=== PATIENT | female | born 1970 | race African-American/Black ===

== ENCOUNTER 2021-12-02 00:17 | Emergency (ER) | payer OTHER ==
[2021-12-02 00:23] VITALS: BP 115/74
--- NOTE | 2021-12-02 00:25 | Emergency Department Report ---
- General Stated Complaint: COVID + Time Seen by Provider: 12/02/21 00:21 - History of Present Illness Initial Comments: Patient was diagnosed with COVID today. She came here because she was having trouble breathing and had nasal congestion. She has not taken anything for this. She has had no vomiting or diarrhea. She has had cough with congestion and fevers and chills. She does not know where she contracted coronavirus from. Patient has no lung history. She has no other complaint. - Related Data Previous Rx's Medication Instructions Recorded Last Taken Type HYDROcodone/APAP 5-325 [[place] 1 each PO Q6HR PRN #10 tablet 02/22/16 Unknown Rx 5/325] Albuterol Sulfate [Proventil Hfa] 2 puff IH 4XD #1 inh 12/02/21 Unknown Rx Benzonatate [Tessalon Perles] 100 mg PO Q8HR #21 cap 12/02/21 Unknown Rx Allergies Allergy/AdvReac Type Severity Reaction Status Date / Time No Known Allergies Allergy Verified 02/21/16 13:55 ED Review of Systems ROS: Stated complaint: COVID + Other details as noted in HPI Comment: All other systems reviewed and negative Constitutional: fever Eyes: denies: vision change ENT: denies: epistaxis Respiratory: see HPI Cardiovascular: denies: chest pain Endocrine: denies: unexplained weight loss Gastrointestinal: denies: abdominal pain Genitourinary: denies: dysuria Musculoskeletal: denies: back pain Skin: denies: rash Neurological: denies: headache Hematological/Lymphatic: denies: easy bruising ED Past Medical Hx - Past Medical History Hx Hypertension: No Hx GERD: Yes Hx Asthma: Yes - Surgical History Hx Cholecystectomy: Yes Additional Surgical History: LEFT EAR SURGERY - Family History Family history: asthma - Social History Smoking Status: Never Smoker Substance Use Type: Alcohol - Medications Home Medications: Home Medications Medication Instructions Recorded Confirmed Last Taken Type HYDROcodone/APAP 5-325 [[place] 1 each PO Q6HR PRN #10 tablet 02/22/16 Unknown Rx 5/325] Albuterol Sulfate [Proventil Hfa] 2 puff IH 4XD #1 inh 12/02/21 Unknown Rx Benzonatate [Tessalon Perles] 100 mg PO Q8HR #21 cap 12/02/21 Unknown Rx ED Physical Exam - General Limitations: No Limitations, Other General appearance: alert, in no apparent distress - Head Head exam: Present: atraumatic, normocephalic - Eye Eye exam: Present: normal appearance, EOMI - ENT ENT exam: Present: normal external ear exam - Neck Neck exam: Present: normal inspection. Absent: meningismus - Respiratory Respiratory exam: Present: normal lung sounds bilaterally. Absent: respiratory distress - Cardiovascular Cardiovascular Exam: Present: regular rate, normal rhythm - Extremities Exam Extremities exam: Present: normal capillary refill - Back Exam Back exam: Present: full ROM - Neurological Exam Neurological exam: Present: alert, oriented X3, normal gait. Absent: motor sensory deficit - Psychiatric Psychiatric exam: Present: normal affect, normal mood - Skin Skin exam: Present: warm, dry ED Course - Reevaluation(s) Reevaluation #1: 12/02/21 00:24 Patient was not hypoxic. She was discharged. ED Medical Decision Making - Medical Decision Making Patient presents with a diagnosis of coronavirus x1 day and shortness of breath with congestion. The congestion is related to the viral infection. She states that she is dyspneic but is not hypoxic. She is not tachycardic. She is in no distress. She was treated with an albuterol inhaler and discharged. I do not believe this represents any type of pneumonia as the patient has clear breath sounds. She is not hypoxic or tachycardic. There is no chest pain. I do not believe this represents PE Critical Care Time: No Critical care attestation.: If time is entered above; I have spent that time in minutes in the direct care of this critically ill patient, excluding procedure time. ED Disposition Clinical Impression: COVID-19 virus infection, Shortness of breath Disposition: 01 HOME / SELF CARE / HOMELESS Is pt being admited?: No Condition: Stable Instructions: COVID-19 Frequently Asked Questions, Shortness of Breath, Adult, COVID-19: How to Protect Yourself and Others - CDC Additional Instructions: Push fluids. Use Tylenol and ibuprofen for fever. Follow-up with your regular doctor. Isolate at home for 5 days. Use the inhaler as directed. Prescriptions: Albuterol Sulfate [Proventil Hfa] 2 puff IH 4XD #1 inh Benzonatate [Tessalon Perles] 100 mg PO Q8HR #21 cap Referrals: PRIMARY CARE, [Referring] - 3-5 Days CARBUCCIA,KELBY, MD [Staff Physician] - 3-5 Days
== END 2021-12-02 01:36 | disposition home or self-care (01) ==
LOC: ED 00:17
DX: U07.1 COVID-19 (principal); R06.02 Shortness of breath; K21.9 Gastro-esophageal reflux disease without esophagitis; J45.909 Unspecified asthma, uncomplicated; Z98.890 Other specified postprocedural states
CPT/HCPCS: 99282

== ENCOUNTER 2022-02-23 10:03 | Emergency (ER) | payer OTHER ==
[2022-02-23 11:10] VITALS: BP 112/88
--- NOTE | 2022-02-23 12:23 | Emergency Department Report ---
ED Headache HPI - General Chief Complaint: Headache Stated Complaint: HEADACHE/NASAL CONGESTION/BODY PAIN Time Seen by Provider: 02/23/22 12:02 - History of Present Illness Initial Comments: 51-year-old female with a past medical history of asthma presents to the emergency department for evaluation of headache, nasal congestion, and itchy throat for the past 2 days. She denies fever, abdominal pain. Timing/Duration: 24 hours Quality: moderate Head Injury Location: frontal Recent Head Trauma: no recent headache/trauma Associated Symptoms: nasal congestion, nasal drainage. denies: confusion, fatigue, facial pain, fever/chills, flushing, loss of consciousness, nausea/vomiting, numbness in legs/feet, seizures, sinus infection, stiff neck, vision changes, weakness Allergies/Adverse Reactions: Allergies No Known Allergies Allergy (Verified 02/21/16 13:55) Home Medications: Ambulatory Orders HYDROcodone/APAP 5-325 [[place] 5/325] 1 each PO Q6HR PRN #10 tablet 02/22/16 Albuterol Sulfate [Proventil Hfa] 2 puff IH 4XD #1 inh 12/02/21 Benzonatate [Tessalon Perles] 100 mg PO Q8HR #21 cap 12/02/21 Brompheniramine/Pseudoephed/Dm [Bromfed Dm Cough Syrup] 10 ml PO TID PRN #120 ml 02/23/22 methylPREDNISolone [Medrol 4MG DOSEPAK (21 tabs)] 4 mg PO DAILY #1 pack 02/23/22 ED Review of Systems ROS: Stated complaint: HEADACHE/NASAL CONGESTION/BODY PAIN Other details as noted in HPI Comment: All other systems reviewed and negative Constitutional: denies: chills, fever Eyes: denies: eye pain, vision change ENT: throat pain, congestion. denies: ear pain, dental pain Respiratory: cough. denies: shortness of breath, SOB with exertion, SOB at rest Cardiovascular: denies: chest pain, palpitations Gastrointestinal: denies: abdominal pain, nausea, vomiting Genitourinary: denies: urgency, dysuria Musculoskeletal: denies: back pain Skin: denies: rash, lesions Neurological: headache. denies: weakness, numbness, paresthesias, confusion, abnormal gait, vertigo ED Past Medical Hx - Past Medical History Hx Hypertension: No Hx GERD: Yes Hx Asthma: Yes - Surgical History Hx Cholecystectomy: Yes Additional Surgical History: LEFT EAR SURGERY - Social History Smoking Status: Never Smoker Substance Use Type: None - Medications Home Medications: Home Medications Medication Instructions Recorded Confirmed Last Taken Type HYDROcodone/APAP 5-325 [[place] 1 each PO Q6HR PRN #10 tablet 02/22/16 Unknown Rx 5/325] Albuterol Sulfate [Proventil Hfa] 2 puff IH 4XD #1 inh 12/02/21 Unknown Rx Benzonatate [Tessalon Perles] 100 mg PO Q8HR #21 cap 12/02/21 Unknown Rx Brompheniramine/Pseudoephed/Dm 10 ml PO TID PRN #120 ml 02/23/22 Unknown Rx [Bromfed Dm Cough Syrup] methylPREDNISolone [Medrol 4MG 4 mg PO DAILY #1 pack 02/23/22 Unknown Rx DOSEPAK (21 tabs)] ED Physical Exam - General Limitations: No Limitations General appearance: alert, in no apparent distress - Head Head exam: Present: atraumatic, normocephalic - Eye Eye exam: Present: normal appearance. Absent: conjunctival injection - ENT ENT exam: Absent: normal exam (Bilateral nasal mucosal edema and turbinate swelling.), normal orophraynx - Expanded ENT Exam Expanded Mouth exam: Present: normal external inspection Throat exam: Negative: normal inspection (Erythema to posterior oropharynx), tonsillar erythema, tonsillomegaly, tonsillar exudate, R peritonsillar mass, L peritonsillar mass - Respiratory Respiratory exam: Present: normal lung sounds bilaterally. Absent: respiratory distress, wheezes, rales, rhonchi, stridor, chest wall tenderness - Cardiovascular Cardiovascular Exam: Present: regular rate, normal heart sounds - GI/Abdominal GI/Abdominal exam: Present: soft, normal bowel sounds. Absent: distended, tenderness, guarding, rebound, rigid - Extremities Exam Extremities exam: Present: normal inspection. Absent: pedal edema, joint swelling - Back Exam Back exam: Present: normal inspection. Absent: CVA tenderness (R), CVA tende rness (L) - Neurological Exam Neurological exam: Present: alert, oriented X3, normal gait - Psychiatric Psychiatric exam: Present: normal affect, normal mood - Skin Skin exam: Present: warm, dry, intact, normal color ED Course Vital Signs 02/23/22 11:09 Temperature 98.2 F Pulse Rate 60 Respiratory 18 Rate Blood Pressure 112/88 [Right] O2 Sat by Pulse 98 Oximetry ED Medical Decision Making - Medical Decision Making 51-year-old female with a past medical history of asthma presents to the emergency department for evaluation of headache, nasal congestion, and itchy throat for the past 2 days. She denies fever, abdominal pain. Exam consistent with sinusitis. Patient denies shortness of breath or fever. She will be discharged home with Medrol Dosepak and Bromfed for cough to use as needed. She is advised to take medications as prescribed, drink plenty of noncaffeinated fluids, and follow-up with primary care provider if no improve ment or worsening symptoms. She verbalized understanding of and agreement with plan of care. Critical care attestation.: If time is entered above; I have spent that time in minutes in the direct care of this critically ill patient, excluding procedure time. ED Disposition Clinical Impression: Sinusitis Qualifiers: Sinusitis location: frontal Chronicity: acute Recurrence: non-recurrent Qualified Code(s): J01.10 - Acute frontal sinusitis, unspecified Disposition: 01 HOME / SELF CARE / HOMELESS Is pt being admited?: No Does the pt Need Aspirin: No Condition: Stable Instructions: Sinusitis, Adult, [id number], How to Perform a Sinus Rinse, [id number] Additional Instructions: Take medications as prescribed. Drink plenty of noncaffeinated fluids. Follow- up with primary care provider if no improvement or worsening symptoms. Prescriptions: Brompheniramine/Pseudoephed/Dm [Bromfed Dm Cough Syrup] 10 ml PO TID PRN #120 ml PRN Reason: Cough methylPREDNISolone [Medrol 4MG DOSEPAK (21 tabs)] 4 mg PO DAILY #1 pack Referrals: ALFREDA ANTONIO MD [Referring] - 3-5 Days Forms: Work/School Release Form(ED) Time of Disposition: 12:29
== END 2022-02-23 13:09 | disposition home or self-care (01) ==
LOC: ED 10:03
DX: J32.9 Chronic sinusitis, unspecified (principal); K21.9 Gastro-esophageal reflux disease without esophagitis; J45.909 Unspecified asthma, uncomplicated; Z90.49 Acquired absence of other specified parts of digestive tract
CPT/HCPCS: 87116; 87430; 99283

== ENCOUNTER 2022-02-26 08:06 | Emergency (ER) | payer OTHER ==
[2022-02-26 08:25] VITALS: BP 125/72
--- NOTE | 2022-02-26 09:04 | Emergency Department Report ---
Minor Respiratory - HPI Chief Complaint: Skin Rash Stated Complaint: FACE SWELLING/SORE THROAT Time Seen by Provider: 02/26/22 08:31 Duration: 5 Days Pain Location: Other Severity: mild Minor Respiratory: Yes Sore Throat, Yes Able to Tolerate Fluids, No Rhinorrhea, No Ear Pain, No Cough, No Sick Contacts, No Hemoptysis, No Chest Pain, No Shortness of Breath, No Fever Other History: Patient is a 51-year-old that comes to the emergency room after being here just 2-day days ago with ongoing symptoms of sinusitis. She has sinus pressure sore throat and today she has swelling of her eyes. The swelling of her eyes is what brings her to the ER. There is no conjunctivitis. She denies trauma. No trauma to the eyes. Patient is [id number] on exam in triage. Her significant other is with her and asking about additional work days off. She states she has been taking her medications. She is ambulatory nontoxic and [id number] ED Review of Systems ROS: Stated complaint: FACE SWELLING/SORE THROAT Other details as noted in HPI Comment: All other systems reviewed and negative ED Past Medical Hx - Past Medical History Previous Medical History?: Yes Hx Hypertension: No Hx GERD: Yes Hx Asthma: Yes - Surgical History Past Surgical History?: Yes Hx Cholecystectomy: Yes Additional Surgical History: LEFT EAR SURGERY - Family History Family history: no significant - Social History Smoking Status: Never Smoker Substance Use Type: None - Medications Home Medications: Home Medications Medication Instructions Recorded Confirmed Last Taken Type HYDROcodone/APAP 5-325 [[place] 1 each PO Q6HR PRN #10 tablet 02/22/16 Unknown Rx 5/325] Albuterol Sulfate [Proventil Hfa] 2 puff IH 4XD #1 inh 12/02/21 Unknown Rx Benzonatate [Tessalon Perles] 100 mg PO Q8HR #21 cap 12/02/21 Unknown Rx Brompheniramine/Pseudoephed/Dm 10 ml PO TID PRN #120 ml 02/23/22 Unknown Rx [Bromfed Dm Cough Syrup] methylPREDNISolone [Medrol 4MG 4 mg PO DAILY #1 pack 02/23/22 Unknown Rx DOSEPAK (21 tabs)] Minor Respiratory Exam - Exam General: Vital signs noted. No distress. Alert and acting appropriately. Mild bilateral periorbital swelling when she woke up this morning. No conjunctivitis. HEENT: Yes Pharyngeal Erythema, Yes Moist Mucous Membranes, Yes Frontal Tenderness, Yes Maxillary Tenderness, No Pharyngeal Exudates, No Rhinorrhea, No Conjuctival Injection Ear: Neither TM Bulge, Neither TM Erythema, Neither EAC Pain, Neither EAC Discharge Neck: Yes Supple, No Adenopathy Lungs: Yes Good Air Exchange, No Wheezes, No Ronchi, No Stridor, No Cough, No Labored Respirations, No Retractions, No Use of Accessory Muscles, No Other Abnormal Lung Sounds Heart: Yes Regular, No Murmur Abdomen: Yes Normal Bowel Sounds, No Tenderness, No Peritoneal Signs Skin: No Rash, No Edema Neurologic: Alert and oriented, no deficits. Musculoskeletal: Unremarkable. ED Course Vital Signs 02/26/22 08:22 Temperature 98.7 F Pulse Rate 66 Respiratory 16 Rate Blood Pressure 125/72 [Left] O2 Sat by Pulse 98 Oximetry ED Medical Decision Making - Medical Decision Making Vital Signs 02/26/22 08:22 Temperature 98.7 F Pulse Rate 66 Respiratory 16 Rate Blood Pressure 125/72 [Left] O2 Sat by Pulse 98 Oximetry Patient denies any fever or chills. Patient denies any cough with purulent or colored sputum. She is ambulatory, nontoxic and [id number]. She is taking p.o. I have given patient Decadron IM in the ER. I have encouraged her to use warm compresses and Motrin or Tylenol for her eye swelling and sore throat. I have educated her on sinusitis and viral infections taking some time to resolve. She has been instructed to continue her home medications. I have asked her to follow-up with her PCP next week if she is not feeling better. I have given her a work note for today. And told her that additional work notes would need to be given from her PCP. Patient discharged with discharge plan of care including diet, activities, medications and follow-up. She verbalizes understanding of discharge plan of care - Differential Diagnosis URI follow-up Critical care attestation.: If time is entered above; I have spent that time in minutes in the direct care of this critically ill patient, excluding procedure time. ED Disposition Clinical Impression: Sinusitis Disposition: HOME / SELF CARE / HOMELESS Is pt being admited?: No Does the pt Need Aspirin: No Condition: Stable Instructions: Sinusitis, Adult, [id number] Additional Instructions: Continue your medicines given on Friday warm compresses to your eyes Motrin or Tylenol for pain Follow-up with your PCP if you are not better by next week Referrals: TY WOODWARD MD [Primary Care Provider] - 3-5 Days Forms: Work/School Release Form(ED) Time of Disposition: 09:04
== END 2022-02-26 09:33 | disposition home or self-care (01) ==
LOC: ED 08:06
DX: J32.9 Chronic sinusitis, unspecified (principal); J45.909 Unspecified asthma, uncomplicated
CPT/HCPCS: 99282